=== PATIENT | female | born 1935 | race Caucasian/White ===

== ENCOUNTER 2022-12-09 15:39 | Emergency (ER) | payer MEDICARE, BC ==
[~2022-12-09] VITALS: Ht 172.7 cm; Wt 72.7 kg
[~2022-12-09 15:39] MED LIST: MECL-159 PO
[2022-12-09 15:55] LABS: BASOPHILS # (AUTO) 0.1 X10'3 (0-0.2); BASOPHILS % (AUTO) 0.9 % (0-1); EOSINOPHILS % (AUTO) 0.6 % (0-6); HEMATOCRIT 44.5 % (35.0-45.0); HEMOGLOBIN 14.9 g/dl (12.0-16.0); LYMPHOCYTES # (AUTO) 0.7 X10'3 (1.1-4.8); LYMPHOCYTES % (AUTO) 9.1 % (21-51); MEAN CORPUSCULAR HEMOGLOBIN 32.7 PG (27.0-31.0); MEAN CORPUSCULAR HGB CONC 33.4 g/dL (33.0-36.5); MEAN CORPUSCULAR VOLUME 97.7 FL (78-98); MEAN PLATELET VOLUME 8.7 FL (7.4-10.4); MONOCYTES # (AUTO) 0.8 X10'3 (0-0.9); MONOCYTES % (AUTO) 9.8 % (2-12); NEUTROPHILS # (AUTO) 6.6 X10'3 (1.8-7.7); NEUTROPHILS % (AUTO) 79.6 % (42-75); PLATELET COUNT 226 X10'3 (140-440); RED BLOOD COUNT 4.55 X10'6 (4.20-5.60); RED CELL DISTRIBUTION WIDTH 13.9 % (11.5-14.5); WHITE BLOOD COUNT 8.2 X10'3 (4.5-11.0)
[2022-12-09 16:19] LABS: ALANINE AMINOTRANSFERASE 20 U/L (12-78); ALBUMIN 3.7 G/DL (3.4-5.0); ALBUMIN/GLOBULIN RATIO 1.1 (1.1-1.5); ALKALINE PHOSPHATASE 171 IU/L (46-116); ANION GAP 6 (8-16); ASPARTATE AMINO TRANSFERASE 23 U/L (10-37); BILIRUBIN,TOTAL 0.3 MG/DL (0.1-1.0); BLOOD UREA NITROGEN 14 MG/DL (7-18); BUN/CREATININE RATIO 21.2 (6.6-38.0); CALCIUM 9.1 MG/DL (8.5-10.1); CHLORIDE 101 MMOL/L (99-107); CREATININE 0.66 MG/DL (0.40-0.90); GLUCOSE 145 MG/DL (70-104); MAGNESIUM 2.3 MG/DL (1.5-2.4); POTASSIUM 4.6 MMOL/L (3.5-5.1); SODIUM 135 MMOL/L (135-145); TOTAL CARBON DIOXIDE 28.5 MMOL/L (24-32); TOTAL PROTEIN 7.1 G/DL (6.4-8.2); eGFR 85 ML/MIN
[2022-12-09] MEDS ORDERED: diltiazem SR 60mg capsule (twice daily) PO SCH (21:55)
[2022-12-09 23:02] VITALS: BP 121/55
[2022-12-10] MEDS ORDERED: diltiazem SR 60mg capsule (twice daily) PO SCH (08:00)
== END 2022-12-09 23:12 | disposition home or self-care (01) ==
LOC: ER 15:39
DX: I48.20 Chronic atrial fibrillation, unspecified (principal); I10 Essential (primary) hypertension
CPT/HCPCS: 36415; 80053; 83735; 83880; 84484; 85025; 93005; 99284

== ENCOUNTER 2023-02-10 04:13 | Emergency (ER) | payer MEDICARE, BC ==
[~2023-02-10] VITALS: Ht 170.2 cm; Wt 70.0 kg
[2023-02-10 04:17] VITALS: BP 110/65
[2023-02-10 04:54] LABS: COLOR,URINE STRAW (Yellow); GLUCOSE, URINE NEGATIVE (Neg); KETONES,URINE NEGATIVE (Neg); LEUKOCYTE ESTERASE ,URINE SMALL (Neg); NITRITES, URINE NEGATIVE (Neg); OCCULT BLOOD,URINE SMALL (Neg); PROTEIN,URINE NEGATIVE (Neg); UROBILINOGEN,URINE 0.2 E.U/dL (0.2-1.0)
[2023-02-10] MEDS ORDERED: CEPH-585 PO (04:55)
[2023-02-10] MEDS ORDERED: cephalexin 250mg capsule PO ONE (04:55)
[2023-02-10 05:00] LABS: CLARITY,URINE SLIGHTLY CLOUDY (Clear); UA COLLECTION TYPE STRAIGHT CATH
[2023-02-10 05:01] LABS: SQUAMOUS EPITHELIAL CELL,UR MODERATE /LPF (FEW); WBC,URINE 30-50 /HPF (0-4)
[2023-02-10 05:02] LABS: BACTERIA,URINE FEW /HPF (Neg)
== END 2023-02-10 05:31 | disposition home or self-care (01) ==
LOC: ER 04:13
DX: N39.0 Urinary tract infection, site not specified (principal); I10 Essential (primary) hypertension
CPT/HCPCS: 81001; 87088; 99283; A4353

== ENCOUNTER 2025-09-11 20:31 | Emergency (ER) | payer BC, MEDICARE ==
[~2025-09-11] VITALS: Ht 170.2 cm; Wt 58.0 kg
[~2025-09-11 20:31] MED LIST changes: -MECL-159 PO; +MECL-302 PO
--- NOTE | 2025-09-11 20:38 | Physician Documentation ---
History of Present Illness ~ Stated Complaint: SEIZURE Time Seen by MD: 20:33 Primary Medical Doctor: Dr Caden Alvarado (cardiology) HPI Patient presents to the emergency room from assisted living facility for reports of seizure. Patient has history of seizures. Patient was apparently walking with her walker when her arms began tremoring. No fall and no loss of consciousness. Several additional episodes occurred totaling a number of five episodes of arm shaking with no loss of consciousness or falling. Medication Reconciliation Allergies: Coded Allergies: No Known Allergies (Unverified , 07/12/17) Scheduled Meclizine HCl (Meclizine HCl), 1 TAB PO TID PRN Past Medical History Past Medical History: Atrial Fibrillation, Hypertension, UTI, Breast Cancer Past Surgical History: no surgical history Alcohol Use: None Lives In: Home Review of Systems ROS All review of systems negative except as per HPI Physical Exam Physical Exam General: Patient is awake, alert, oriented x4 in no acute distress Head: Normocephalic and atraumatic. Eyes: Conjunctival normal. EOMI. PERRL. ENT: Mucous membranes moist. Neck: Supple, trachea is midline. Chest: Clear to auscultation bilaterally without rales, rhonchi, or wheezes. There is no accessory muscle use or retractions. Cardiac: RRR without murmurs, gallops, or rubs. Extremities: Normal strength. Normal range of motion. No deformities or edema. Neuro: Cranial nerves II-XII grossly intact. No focal neuro deficits. Progress Results/Orders Results/Orders Orders - NORTH TERRY MD Cult Urine + [address] (09/11/25 22:02) Ceftriaxone/[id number] 1gm (Rocephin 1 (09/11/25 22:15) Completed Orders - NORTH TERRY MD Cbc/Diff (09/11/25 20:36) BMP (09/11/25 20:36) Levetiracetam Inj (Keppra Inj) (09/11/25 20:40) Levetiracetam-[id number]/100ml (Levetira (09/11/25 20:45) Ua W/Microscopic, Cult If Ind (09/11/25 21:38) Medications Received in ER Medications (Trade) Dose Ordered Sig/Jv Route PRN Reason Start Time Stop Time Status Last Admin Dose Admin Levetiracetam 100 ml @ 400 mls/hr ONCE ONCE IV 09/11/25 20:45 09/11/25 20:59 DC 09/11/25 20:57 400 MLS/HR Vital Signs 09/11/25 09/11/25 09/11/25 20:34 21:25 22:11 Temp 97.9 97.9 Pulse 86 74 Resp 14 11 B/P (MAP) 140/70 137/64 (88) Pulse Ox 97 97 O2 Flow Rate 0 0 Laboratory Tests Test 09/11/25 20:55 09/11/25 21:38 White Blood Count 7.4 Red Blood Count 4.36 Hemoglobin 13.6 Hematocrit 40.1 Mean Corpuscular Volume 91.9 Mean Corpuscular Hemoglobin 31.1 H Mean Corpuscular Hemoglobin Concent 33.9 Red Cell Distribution Width 13.9 Platelet Count 287 Mean Platelet Volume 8.6 Neutrophils (%) (Auto) 70.2 Lymphocytes (%) (Auto) 20.1 L Monocytes (%) (Auto) 7.1 Eosinophils (%) (Auto) 1.6 Basophils (%) (Auto) 1.0 Neutrophils # (Auto) 5.2 Lymphocytes # (Auto) 1.5 Monocytes # (Auto) 0.5 Eosinophils # (Auto) 0.1 Basophils # (Auto) 0.1 CBC Comment Sodium Level 137 Potassium Level 3.9 Chloride Level 101 Carbon Dioxide Level 28.9 Anion Gap 7 L Blood Urea Nitrogen 11 Creatinine 0.54 Estimated GFR/1.73 m2 > 90 BUN/Creatinine Ratio 20.4 H Glucose Level 109 H Calcium Level 8.8 Albumin 3.5 Chemistry Comments Urine Specimen Description Non-specified Urine Color Straw Urine Clarity Clear Urine pH 8.0 Urine Specific [place] 1.010 Urine Protein Negative Urine Glucose (UA) Negative Urine Ketones Negative Urine Occult Blood Small Urine Nitrite Positive H Urine Bilirubin Negative Urine Urobilinogen 0.2 Urine Leukocyte Esterase Small H Urine RBC 0-2 Urine WBC 5-10 H Urine Squamous Epithelial Cells Few Urine Amorphous Phosphates 1+ Urine Bacteria 1+ Urine Mucus None seen Urine Culture Indicated Indicated Volume Urine Centrifuged 10 ml Urine Comment Medical Decision Making Additional information obtaine: N/A Findings Patient presents to the emergency room with seizure-like activity. Differentia ls include but are not limited to urinary tract infection, seizure, electrolyte disturbances therefore emergent labs ordered which were reassuring. Positive urinary tract infection. Family at bedside mentioned that she does have these arm shaking episodes occasionally. He had not feel patient requires a CT scan. Differential Dx:Considerations: Include: Hyperventilation, Psychogenic seizure, Due to alcohol withdrawl, Anticonvulsant withdrawl, Due to closed head injury, Due to CVA/TIA, Due to drug ingestion, Due to eclampsia, Due to hypocalcemia, Due to hypoglycemia, Due to hyponatremia, Due to hypoxemia, Idiopathic, Due to mass lesion, Due to meningitis, Syncope, Encephalopathy, Epilepsy-break through, Epilepsy-status, Other Departure Disposition: HOME / SELF CARE / HOMELESS Impression: Primary Impression: UTI (urinary tract infection) Condition: Stable Discharge Instructions: Urinary Tract Infection, Adult Referrals: NO PRIMARY CARE PROVIDER (PCP) Prescriptions Cephalexin*Monohydrate* (Keflex*) 500 Mg Capsule 1 CAP PO Q12H for 10 Days, #20 CAP Prov: NORTH TERRY MD 09/11/25 Signature Scribe Signature: No scribe Attestation: The note accurately reflects work and decisions made by me.[place] Terry MD 09/11/25 22:15 NORTH TERRY MD Sep 11, 2025 20:38
[2025-09-11] MEDS ORDERED: levetiracetam inj 750 MG in normal saline 100ml IV soln 100 ML IV ONE (20:40)
[2025-09-11] MEDS: LevETIRAcetam 1,000MG in NS 100ml IV.SOLN premix IV ONE (20:57)
[2025-09-11 21:18] LABS: MEAN PLATELET VOLUME 8.6 FL (7.4-10.4); RED CELL DISTRIBUTION WIDTH 13.9 % (11.5-14.5)
[2025-09-11 21:21] LABS: CREATININE 0.54 MG/DL (0.40-0.90); TOTAL CARBON DIOXIDE 28.9 MMOL/L (24-32); eCRCL 66 ML/MIN; eGFR > 90 ML/MIN
[2025-09-11 21:53] LABS: LEUKOCYTE ESTERASE ,URINE SMALL (Neg); NITRITES, URINE POSITIVE (Neg); OCCULT BLOOD,URINE SMALL (Neg)
[2025-09-11 22:00] LABS: UA COLLECTION TYPE NON-SPECIFIED
[2025-09-11 22:01] LABS: MUCUS STRANDS NONE SEEN /LPF (Neg); SQUAMOUS EPITHELIAL CELL,UR FEW /LPF (FEW)
[2025-09-11 22:02] LABS: AMORPHOUS PHOSPHATES 1+
[2025-09-11 22:11] VITALS: BP 137/64; PULSE 74; RESP 11; TEMP 97.9; O2SAT 97
[2025-09-11] MEDS ORDERED: CEPH-585 PO (22:15)
[2025-09-11] MEDS: CefTRIAXone/D5W-Rocephin 1gm 50 ML IV ONE (22:22)
[2025-09-22] MEDS ORDERED: LEVO88TA7 PO (21:54)
[2025-09-22] MEDS ORDERED: PHEN100C12 PO (21:54)
[2025-09-22] MEDS ORDERED: METO-384 PO (21:54)
[2025-09-22] MEDS ORDERED: POTA20PA31 PO (21:54)
[2025-09-22] MEDS ORDERED: APIX2.5T PO (21:54)
[2025-09-23] MEDS ORDERED: ACET-1025 PO (00:22)
== END 2025-09-11 22:54 | disposition home or self-care (01) ==
LOC: ER 20:31
DX: N39.0 Urinary tract infection, site not specified (principal); I48.91 Unspecified atrial fibrillation; I10 Essential (primary) hypertension; Z85.3 Personal history of malignant neoplasm of breast; Z87.440 Personal history of urinary (tract) infections; Z79.899 Other long term (current) drug therapy
CPT/HCPCS: 36415; 80048; 81001; 85025; 87088; 96365; 96367; 99284; A6258; J0696; J1953